=== PATIENT | male | born 1940 | race Caucasian/White ===

== ENCOUNTER 2023-08-10 05:56 | Day surgery (SDC) | payer MEDICARE ==
[~2023-08-10] VITALS: Ht 182.9 cm; Wt 90.3 kg
[2023-08-10] VITALS (11 sets, daily range): BP systolic 96–130; BP diastolic 53–63; PULSE 69–78; RESP 15–17
[~2023-08-10 05:56] MED LIST: AMIO200T44 PO; AMLO2.5T4 PO; ASPI-1197 PO; ATOR40TA71 PO; GLIP5TAB15 PO; INSLAN SQ; LEVO-70 PO; METO50TA9 PO; OMEP40CA21 PO; SEMA1PEN3 SQ
[2023-08-10] MEDS ORDERED: AMIO200T44 PO (06:52)
[2023-08-10] MEDS ORDERED: APIX2.5T PO (06:56)
[2023-08-10] MEDS ORDERED: FURO40TA5 PO (06:56)
[2023-08-10] MEDS ORDERED: POTA-200 PO (06:56)
[2023-08-10] MEDS ORDERED: OMEP20CA12 PO (06:56)
[2023-08-10] MEDS ORDERED: LEVO75CA5 PO (06:56)
[2023-08-10] MEDS ORDERED: METO-409 PO (06:56)
[2023-08-10] MEDS ORDERED: IRON PO (06:56)
[2023-08-10] MEDS ORDERED: SEMA1PEN3 SQ (06:56)
[2023-08-10] MEDS ORDERED: INSLAN SQ (06:59)
[2023-08-10] MEDS: 0.9%NACL 1000ML 1,000 ML IV ONE (07:00)
[2023-08-10] MEDS ORDERED: PROPOFOL 10 MG/ML 20ML VIAL IV ONE (08:33)
== END 2023-08-10 10:15 | disposition home or self-care (01) ==
LOC: ENDO 05:56 → DAH 05:56 → ENDO 10:15
PROVIDERS: ATTEND Internal Medicine Gastroenterology
DX: K76.9 Liver disease, unspecified (principal); K29.50 Unspecified chronic gastritis without bleeding; K76.6 Portal hypertension; K31.89 Other diseases of stomach and duodenum; K92.1 Melena; D50.9 Iron deficiency anemia, unspecified; K64.0 First degree hemorrhoids; I48.91 Unspecified atrial fibrillation; I10 Essential (primary) hypertension; E11.9 Type 2 diabetes mellitus without complications; M19.90 Unspecified osteoarthritis, unspecified site; Z86.010 Personal history of colon polyps; Z85.118 Personal history of other malignant neoplasm of bronchus and lung; Z85.51 Personal history of malignant neoplasm of bladder; Z80.0 Family history of malignant neoplasm of digestive organs; Z82.49 Family history of ischemic heart disease and other diseases of the circulatory system; Z79.899 Other long term (current) drug therapy; Z98.890 Other specified postprocedural states
CPT/HCPCS: 43239; 82948; A4606; J2704; J7030; A4215; A4221; A4222; A4223; A4620; A4663; A7002; J3490